=== PATIENT | female | born 1995 | race Caucasian/White ===

== ENCOUNTER 2025-06-04 16:07 | Inpatient (IN) | payer BC ==
[~2025-06-04] VITALS: Ht 167.6 cm; Wt 63.2 kg
[2025-06-04] MEDS ORDERED: ONDANSETRON HCL/PF 4 MG/2 ML VIAL ONE (17:35)
[2025-06-04] MEDS ORDERED: KETOROLAC TROMETHAMINE 15 MG/ML VIAL ONE (17:35)
[2025-06-04 17:49] LABS: APPEARANCE,URINE CLEAR (CLEAR); BLOOD, URINE Negative Ery/uL (NEGATIVE); LEUKOCYTE ESTERASE ,URINE Negative (NEGATIVE); UGLUCOSE Negative (NEGATIVE)
[2025-06-04 17:50] LABS: NITRITE, URINE NEGATIVE (NEGATIVE); PREGNANCY TEST URINE QUAL NEGATIVE (NEGATIVE)
[2025-06-04] MEDS: IV NS 0.9% 1,000 ML BAG IV ONE (17:50)
[2025-06-04 17:51] LABS: ADD URINE CULTURE NO; SQUAMOUS EPITHELIAL CELL,UR Few /HPF (None Seen)
[2025-06-04] MEDS: ONDANSETRON HCL/PF 4 MG/2 ML VIAL IVP ONE (17:52)
[2025-06-04] MEDS: KETOROLAC TROMETHAMINE 15 MG/ML VIAL IV ONE (17:52)
[2025-06-04 17:54] LABS: PLATELET COUNT (AUTO) 457 K/uL (150-450); RED BLOOD CELL COUNT(AUTO) 4.16 MIL/uL (4.0-5.2); RED CELL DISTRIBUTION WIDTH 25.9 % (11.5-15.0); WHITE BLOOD COUNT (AUTO) 12.2 K/uL (4.3-11.0)
[2025-06-04 17:57] LABS: CALCIUM, SERUM 8.8 mg/dL (8.5-10.1); CREATININE 0.7 mg/dL (0.6-1.3); SODIUM SERUM 136.0 mmol/L (136-145); UREA NITROGEN, BLOOD 11.0 mg/dL (7-18)
[2025-06-04 19:00] VITALS: O2SAT 99
[2025-06-04] MEDS ORDERED: PIPERACI/TAZO 3.375GM/D5W 50ML PB IV ONE (19:29)
[2025-06-04] MEDS: PIPERACILLIN /TAZOBACTAM 3.375 G in IV D5W 50 ML IV ONE (19:41)
[2025-06-04 19:54] LABS: INR 0.99 (0.91-1.10)
[2025-06-04] MEDS: PEG 3350/NA SULF,BICARB,CL/KCL 4,000 ML BOTTLE PO ONE (20:25)
[2025-06-04] MEDS ORDERED: DOSING PER PHARMACY-ZOSYN IV 1 EA EA XX PRN (20:30)
[2025-06-04] MEDS ORDERED: ONDANSETRON HCL/PF 4 MG/2 ML VIAL IVP PRN (20:30)
[2025-06-04] MEDS: IV NS 0.9% 1,000 ML IV PRN (22:04)
[2025-06-05] MEDS ORDERED: PIPERACI/TAZO 3.375GM/D5W 50ML PB IV ONE (00:10)
[2025-06-05] MEDS: ZOSYN IVPB 3.375 G in IV D5W 50ml IV SCH (00:25)
[2025-06-05] MEDS: KETOROLAC TROMETHAMINE 15 MG/ML VIAL IV PRN (06:32)
[2025-06-05 07:01] LABS: PLATELET COUNT (AUTO) 456 K/uL (150-450); RED BLOOD CELL COUNT(AUTO) 3.70 MIL/uL (4.0-5.2); RED CELL DISTRIBUTION WIDTH 25.8 % (11.5-15.0); WHITE BLOOD COUNT (AUTO) 9.5 K/uL (4.3-11.0)
[2025-06-05 07:31] LABS: CALCIUM, SERUM 8.4 mg/dL (8.5-10.1); CREATININE 0.8 mg/dL (0.6-1.3); PHOSPHORUS 2.9 mg/dL (2.5-4.9); SODIUM SERUM 140.0 mmol/L (136-145); UREA NITROGEN, BLOOD 10.0 mg/dL (7-18)
[2025-06-05 08:00] VITALS: BP 104/54; TEMP 97.9; O2SAT 98
[2025-06-05] MEDS: PANTOPRAZOLE 40 MG VIAL IV SCH (08:37)
[2025-06-05] MEDS ORDERED: BUDE3CAP8 PO (10:51)
[2025-06-05] MEDS ORDERED: CYCL5TAB PO (10:51)
[2025-06-05] MEDS ORDERED: CHOLESTYRAMINE PO (10:51)
[2025-06-05] MEDS ORDERED: NALTREXONE PO (10:51)
[2025-06-05] MEDS ORDERED: [UNRECOGNIZED DRUG - CODE] PO (10:51)
[2025-06-05] MEDS ORDERED: [UNRECOGNIZED DRUG - CODE] PO (10:51)
[2025-06-05] MEDS ORDERED: FLUC100T8 PO (10:51)
[2025-06-05] MEDS ORDERED: AMOX-430 PO (11:53)
== END 2025-06-05 13:40 | disposition home or self-care (01) | DRG 394 ==
LOC: ER 16:34 → MED 20:35
PROVIDERS: ADMIT Nurse Practitioner Family; ATTEND Internal Medicine
DX: K35.80 Unspecified acute appendicitis (principal); K50.10 Crohn's disease of large intestine without complications; K59.00 Constipation, unspecified; D64.9 Anemia, unspecified
CPT/HCPCS: 36415; 80048-TC; 81001; 83735-TC; 84100-TC; 84703-TC; 85025-TC; 85610-TC; 86850-TC; 87081-TC; A4223; G0378; J1885; J2405; J2470; J2543; J7030; J7060